=== PATIENT | female | born 1940 | race Caucasian/White ===

== ENCOUNTER → 2018-10-17 | Outpatient (CLI) | payer MEDICARE ==
[~2018-10-17] MED LIST: ACETAMINOPHEN-120 ML PO; ADULT LOW DOSE81 MG PO; ATACAND32 MG PO; CARAFATE 1 GM TA1 G1 PO; CARAFATE 11 GM/10 M1 PO; FLEXERIL PO; NEXIUM40 MG PO; NORCO 5-325 TA1 EACH PO; OXYIR5 MG PO; PHENERGAN 25 MG25 M1 PO; PREMARIN0.625 MG PO; PROTONIX40 M2 PO; REGLAN 5 MG TAB5 M1 PO; ULTRAM 50MG TAB50 MG PO; VENTOLIN17 GM INH; XANAX 0.25 MG0.25 MG; ZOFRAN4 MG PO; ZPAK PO
[2018-10-17 14:47] LABS: ABSOLUTE BASOPHILS 0.1 thou/uL (0.0-0.2); ABSOLUTE EOSINOPHILS 0.3 thou/uL (0.0-0.7); ABSOLUTE LYMPHOCYTES 1.4 thou/uL (0.8-5.3); ABSOLUTE MONOCYTES 0.4 thou/uL (0.0-1.2); BASOPHILS 0.8 %; EOSINOPHILS 3.4 %; HEMATOCRIT 30.7 % (37.0-47.0); HEMOGLOBIN 10.3 gm/dL (12.0-15.0); LYMPHOCYTES 17.4 %; MCH 32.4 pg (26.0-34.0); MCHC 33.5 g/dL (28.0-37.0); MCV 96.9 fL (80.0-100.0); MONOCYTES 4.4 %; MPV 8.6 fl. (7.2-11.1); NUCLEATED RBCS 0 /100WBC; PLATELET COUNT* 342 thou/uL (150-400); RBC 3.17 mil/uL (4.20-5.00); RDW-CV 14.9 % (10.5-14.5); WBC 8.2 thou/uL (4.0-11.0)
[2018-10-17 15:01] LABS: ALBUMIN 3.2 g/dL (3.4-5.0); CALCIUM 8.6 mg/dL (8.5-10.1); CREATININE 0.9 mg/dL (0.6-1.3); POTASSIUM 3.8 mmol/L (3.5-5.1); TOTAL BILIRUBIN 0.3 mg/dL (<0.1-1.0); TOTAL PROTEIN 7.4 g/dL (6.4-8.2)
[2018-10-17 16:17] LABS: ESR (SEDRATE) 55 mm/hr (0-30)
== END ==
LOC: M.LAB 14:23
PROVIDERS: Internal Medicine Gastroenterology
DX: K92.2 Gastrointestinal hemorrhage, unspecified (principal); Z85.038 Personal history of other malignant neoplasm of large intestine

== ENCOUNTER → 2019-06-24 | Outpatient (CLI) | payer MEDICARE ==
[2019-06-24 11:57] LABS: ABSOLUTE BASOPHILS 0.1 thou/uL (0.0-0.2); ABSOLUTE EOSINOPHILS 0.2 thou/uL (0.0-0.7); ABSOLUTE LYMPHOCYTES 1.4 thou/uL (0.8-5.3); ABSOLUTE MONOCYTES 0.4 thou/uL (0.0-1.2); ABSOLUTE NEUTROPHILS 4.4 thou/uL (1.6-8.1); BASOPHILS 1.9 %; EOSINOPHILS 3.1 %; HEMATOCRIT 36.1 % (37.0-47.0); LYMPHOCYTES 20.9 %; MCH 31.1 pg (26.0-34.0); MCHC 33.2 g/dL (28.0-37.0); MCV 93.5 fL (80.0-100.0); MONOCYTES 5.9 %; MPV 9.2 fl. (7.2-11.1); NUCLEATED RBCS 0 /100WBC; PLATELET COUNT* 286 thou/uL (150-400); POLYS 68.2 %; RBC 3.86 mil/uL (4.20-5.00); RDW-CV 14.2 % (10.5-14.5); WBC 6.5 thou/uL (4.0-11.0)
[2019-06-24 12:15] LABS: ALBUMIN 3.6 g/dL (3.4-5.0); CALCIUM 9.2 mg/dL (8.5-10.1); TOTAL BILIRUBIN 0.6 mg/dL (<0.1-1.0)
[2019-06-24 13:01] LABS: ESR (SEDRATE) 49 mm/hr (0-30)
== END ==
LOC: M.LAB 11:30
PROVIDERS: Internal Medicine Gastroenterology
DX: D50.9 Iron deficiency anemia, unspecified (principal)

== ENCOUNTER 2019-10-02 10:12 | Inpatient (IN) | payer MEDICARE ==
[~2019-10-02] VITALS: Ht 160 cm; Wt 85.4 kg
--- NOTE | ~2019-10-02 | CON ---
[facility] [address] [place] [address] CONSULTATION Name: FRANCOIS PINA Room: [place] [address] ADM IN M.R.#: [id number] Admission: 10/02/19 Attend Phys: Hugh Gonzalez Discharge: Date of : 38 Report #: [id number] THIS REPORT FOR: //name// CC: Richie Tay Gentry Jasvir [facility] DICTATED BY: Radha Kingsley [facility] DATE OF SERVICE: 10/03/2019 Please note at the time of this dictation, the patient was seen and physically examined by myself. ALLERGIES: HYDROMORPHONE. MEDICATIONS: From home include Xanax, Nexium 40 mg b.i.d., Premarin, Atacand and aspirin. HISTORY OF PRESENT ILLNESS: This is a pleasant 79-year-old female who is well known to our practice that last evening or yesterday she began having some back discomfort that became pretty significant and between her shoulder blades and then radiated into the front of her chest. She states it was not like her acid reflux that she has ever experienced before and it just progressively got worse. She rated her pain as 6/10 and she did have some vomiting when this all started, broke out in a sweat. She states her vomitus was no bright red blood or any coffee-ground emesis. She said her pain is better now and she is getting scheduled for a stress test later today by Cardiology. The patient did undergo an EGD in 06/[address] Stewart that showed long-segment Cannon's esophagus and hiatal hernia. Her Nexium was increased from 40 mg daily to b.i.d. at that time. Last colonoscopy was in 2018, showed some diverticulosis, hemorrhoids and a functional ileocolonic anastomosis. She denies any difficulty swallowing, any nausea or vomiting at this time or any issues with acid reflux. She is not having any abdominal pain and no issues with her bowels at the present time. PAST MEDICAL HISTORY: Hypertension, GERD, trigeminal neuralgia. PAST SURGICAL HISTORY: Hysterectomy. She had a trigeminal neuralgia surgery, has a plate in her left wrist and two fundoplication surgeries done in the past. FAMILY HISTORY: Noncontributory. SOCIAL HISTORY: Former smoker. Denies any alcohol or illegal drug use. REVIEW OF SYSTEMS: Twelve-point review of systems is essentially negative except what is [place] [address] CONSULTATION Name: FRANCOIS PINA Room: [address]#: [id number] Admission: 10/02/19 Attend Phys: Hugh Gonzalez Discharge: Date of : 38 Report #: [id number] PHYSICAL EXAMINATION: VITAL SIGNS: Temperature 36.5, pulse 108, respirations 18, blood pressure 157/86. HEART: Regular rate and rhythm. LUNGS: Clear. ABDOMEN: Soft, positive bowel sounds in all 4 quadrants with no masses or tenderness noted. LABORATORY DATA: Hemoglobin 12.6, white count 9.1, platelets 287. GFR is 53. PT 9.9, INR is 1. Troponins are negative. Stress test pending. IMPRESSION: 1. Vomiting, resolved. 2. Chest and back pain. 3. History of long-segment Cannon's esophagus. Last EGD in 06/2019. PLAN: 1. No endoscopic evaluation warranted at this time given that she recently had one. 2. Await stress test and Cardiology input. Thank you for allowing us to participate in this patient's care. Please do not hesitate to call with any questions in regard to this consult. By: [id number] Funez MD /nt
[2019-10-02 10:21] VITALS: BP 180/83
[2019-10-02 10:45] LABS: ABSOLUTE BASOPHILS 0.2 thou/uL (0.0-0.2); ABSOLUTE EOSINOPHILS 0.2 thou/uL (0.0-0.7); ABSOLUTE LYMPHOCYTES 1.9 thou/uL (0.8-5.3); ABSOLUTE MONOCYTES 0.5 thou/uL (0.0-1.2); ABSOLUTE NEUTROPHILS 6.4 thou/uL (1.6-8.1); BASOPHILS 1.7 %; EOSINOPHILS 1.8 %; HEMOGLOBIN 12.6 gm/dL (12.0-15.0); MCH 31.1 pg (26.0-34.0); MCHC 33.9 g/dL (28.0-37.0); MCV 91.5 fL (80.0-100.0); MONOCYTES 5.4 %; MPV 8.9 fl. (7.2-11.1); NUCLEATED RBCS 0 /100WBC; PLATELET COUNT* 287 thou/uL (150-400); POLYS 70.1 %; RBC 4.04 mil/uL (4.20-5.00); WBC 9.1 thou/uL (4.0-11.0)
[2019-10-02 10:57] LABS: CALCIUM 8.5 mg/dL (8.5-10.1); POTASSIUM 3.3 mmol/L (3.5-5.1)
[2019-10-02 10:59] LABS: APTT 25.6 Seconds (25.0-31.3); PROTIME 9.9 Seconds (9.20-11.50)
[2019-10-02 11:09] LABS: ALBUMIN 3.3 g/dL (3.4-5.0); CK-MB MASS 1.7 ng/mL (<0.5-3.6); MAGNESIUM 1.9 mg/dL (1.8-2.4); TOTAL BILIRUBIN 0.4 mg/dL (<0.1-1.0); TOTAL PROTEIN 7.8 g/dL (6.4-8.2)
--- NOTE | 2019-10-02 17:08 | EKG ---
[place] [address] ELECTROCARDIOGRAM REPORT Name: FRANCOIS PINA Room: [place] [address] ADM IN .R.#: [id number] Admission: 10/02/19 Attend Phys: Hugh Gonzalez Discharge: Date of : 38 Report #: [id number] THIS REPORT FOR: //name// [facility] ED Test Date: 2019-10-02 Test Time: 10:19:20 Pat Name: FRANCOIS PINA Department: Room: [facility] Gender: F Dining Room Attendant: : 1940 Requested By: iJgar Daniel Order Number: [id number] MD: Rodolfo Clarke Measurements Intervals [place] Rate: 93 P: 80 MD: 164 QRS: -8 QRSD: 89 T: 50 QT: 405 QTc: 504 Interpretive Statements Sinus rhythm Borderline ST depression, lateral leads Prolonged QT interval Compared to ECG 09/13/2012 15:05:31 ST (T wave) deviation now present Prolonged QT interval now present Electronically Signed On 10-02-2019 17:07:32 FAMILY INTERVENTION SPECIALIST by Rodolfo Clarke [email or web address] <ELECTRONICALLY SIGNED> By: Rodolfo Clarke MD, FAC 10/02/19 1707 1019 1019 Rodolfo Clarke MD, [facility] /EPI
[2019-10-02 18:14] VITALS: BP 165/60
[2019-10-02 18:20] LABS: CHOLESTEROL 223 mg/dL (<200); HDL CHOLESTEROL 56 mg/dL (>40); LDL CHOLESTEROL 148 mg/dL (<100); TRIGLYCERIDE 97 mg/dL (<150); VLDL 19 mg/dL (<40)
[2019-10-02 18:21] LABS: SERUM ASSESSMENT Clear
[2019-10-02 20:30] VITALS: BP 180/72
[2019-10-02] MEDS ORDERED: COZAAR 25 MG TA25 M1 PO (21:19)
[2019-10-02] MEDS ORDERED: LORAZEPAM 0.50.5 MG PO (21:20)
[2019-10-02] MEDS ORDERED: HYDROXYZINE HCL25 M2 PO (21:23)
[2019-10-02] MEDS ORDERED: SERTRALINE HCL50 MG PO (21:24)
[2019-10-02] MEDS ORDERED: PHENTERMINE H37.5 MG PO (21:24)
[2019-10-03] VITALS (8 sets, daily range): BP systolic 117–178; BP diastolic 65–88
--- NOTE | 2019-10-03 13:02 | EKG ---
[place] [address] ELECTROCARDIOGRAM REPORT Name: FRANCOIS PINA Room: [place] [address] ADM IN M.R.#: [id number] Admission: 10/02/19 Attend Phys: Hugh Gonzalez Discharge: Date of : 38 Report #: [id number] THIS REPORT FOR: //name// [facility] Test Date: 2019-10-03 Test Time: 02:15:40 Pat Name: FRANCOIS PINA Department: Room: [place] [address] Gender: F Vice President Of Development: : 1940 Requested By: Richie Jang Order Number: [id number] MD: Rodolfo Clarke Measurements Intervals [place] Rate: 100 P: 104 SC: 176 QRS: 1 QRSD: 96 T: 29 QT: 399 QTc: 515 Interpretive Statements Sinus tachycardia Consider anterior infarct Minimal ST depression, lateral leads Prolonged QT interval Compared to ECG 10/02/2019 10:19:20 Myocardial infarct finding now present Sinus rate has increased ST (T wave) deviation still present Electronically Signed On 10-03-2019 13:01:27 CUTTER MACHINE TENDER by Rodolfo Clarke [email or web address] <ELECTRONICALLY SIGNED> By: Rodolfo Clarke MD, [facility] 10/03/19 1301 Rodolfo Clarke MD, [facility] /EPI
--- NOTE | 2019-10-03 18:17 | CARDNUC ---
[place] [address] CARDIAC NUCLEAR IMAGING REPORT Name: FRANCOIS PINA Room: [place] [address] ADM IN .R.#: [id number] Admission: 10/02/19 Attend Phys: Richie Jang Discharge: Date of : 38 Date of Service: 10/03/19 1816 Report #: [id number] THIS REPORT FOR: //name// APPROVED REPORT Imaging Protocol: Rest Tc-99m/Stress Tc-99m 1 day Study performed: 10/02/2019 16:54:00 Indication: epigastric pain Patient Location: In-Patient Stress Tech: Lauren Reaves Stress Nurse: Shikha Hair RN NM Tech:NOHEMI Mandel Ht: 5 ft 3 in Wt: 165 lbs BSA: 1.78 m2 BMI: 29.22 Medical History Medical History: HTN Medications: amlodipine Allergies: hydromorphone Cardiac Risk Factors: age, hypertension, former smoker Previous Cardiac Procedures: none Exercise History: Sedentary Resting Data Rest SPECT myocardial perfusion imaging was performed in supine position 30 minutes following the intravenous injection of 11.9 mCi of Tc-99m Sestamibi. Time of rest injection: 1125 Date: 10/03/2019 The images were gated to evaluate regional wall motion and calculate left ventricular ejection fraction. Administration Route: IV Pharmacologic Stress Pharmacologic stress test was performed by injecting Regadenoson 0.4 mg IV push over 10-15 seconds immediately followed by the intravenous injection of 35.5 mCi of Tc-99m Sestamibi. Time of stress injection: 1325 Date: 10/03/2019 Administration Route: IV Gated Stress SPECT was performed 40 minutes after stress injection. The images were gated to evaluate regional wall motion and calculate left ventricular ejection fraction. Stress only was performed [place] [address] CARDIAC NUCLEAR IMAGING REPORT Name: FRANCOIS PINA Room: [address] IN [facility]#: [id number] Admission: 10/02/19 Attend Phys: Richie Jang Discharge: Date of : 38 Date of Service: 10/03/19 1816 Report #: [id number] Stress Test Details Stress Test: Pharmacologic stress testing performed using 0.4 mg of regadenoson per 5 mL given IV over 10 seconds. Reason for pharmacologic stress test: physical limitation. HR Max Heart Rate (APMHR): 140 bpm Resting HR: 90 bpm Target HR (85% APMHR): 119 bpm Max HR Achieved: 119 bpm % of APMHR: 85 Recovery HR: 109 bpm BP Resting BP: 178/90 mmHg Max BP: 126/71 mmHg Recovery BP: 159/81 mmHg ECG Resting ECG: Sinus Rhythm, nonspecific ST-T abnormalities Stress ECG: Sinus Rhythm, nonspecific ST-T abnormalities ST Change: None Arrhythmia: None Recovery ECG: Sinus Rhythm, nonspecific ST-T abnormalities Recovery ST Change: None Recovery Arrhythmia: None Clinical Reason for Termination: Completed protocol Exercise duration: 0 min sec Exercise capacity: 1 METs The patient tolerated Lexiscan infusion without significant cardiac symptoms. Nurse Comments pt unable to walk on treadmill dut to generalized weakness Stress ECG Conclusion Baseline 12-lead EKG show sinus rhythm with nonspecific ST segment depression. EKGs obtained during and post Lexiscan infusion show sinus rhythm with nonspecific ST segment depression. There were no stress-induced arrhythmias. Study Quality Study: Good Artifact: [place] [address] CARDIAC NUCLEAR IMAGING REPORT Name: FRANCOIS PINA Room: [address] IN [facility].#: [id number] Admission: 10/02/19 Attend Phys: Richie Jang Discharge: Date of : 38 Date of Service: 10/03/19 1816 Report #: [id number] Study Data At rest, the left ventricular ejection fraction was 62%.. Post stress, the left ventricular ejection was 62%.. TID = 0.97. Perfusion Perfusion images show mild photopenia of the anterior wall that is more pronounced on resting and stress images. Wall motion in this region appears normal suggesting breast attenuation artifact. There are no significant reversible defects identified. Wall Motion Normal left ventricular wall motion. Nuclear Conclusion ECG Findings: non-diagnostic Clinical Findings: negative for ischemia Nuclear Findings: negative for ischemia Exercise Capacity: not assessed Left Ventricular Function: normal Risk Study: low Perfusion images show no defect to suggest stress-induced ischemia. Global LV systolic function is normal on gated studies. This is a low risk study. <Conclusion> Baseline 12-lead EKG show sinus rhythm with nonspecific ST segment depression. EKGs obtained during and post Lexiscan infusion show sinus rhythm with nonspecific ST segment depression. There were no stress-induced arrhythmias. <ELECTRONICALLY SIGNED> By: Mike Renee MD, FACC 10/03/191815 15 15 Mike Renee MD, FACC /INF
[2019-10-04 00:12] VITALS: BP 140/60
[2019-10-04 04:20] VITALS: BP 164/78
[2019-10-04 07:40] VITALS: BP 142/64
[2019-10-04 11:23] VITALS: BP 98/48
[2019-10-04] MEDS ORDERED: LOPRESSOR25 PO (11:37)
[2019-10-04] MEDS ORDERED: NITROSTAT0.4 M1 SUBLING (11:37)
== END 2019-10-04 14:25 | disposition home or self-care (01) | DRG 392 ==
LOC: M.ERS 10:12 → M.TBA-ER 13:57 → M.2W 13:57
PROVIDERS: Emergency Medicine; Registered Nurse; ADMIT Internal Medicine
DX: K21.0 Gastro-esophageal reflux disease with esophagitis (principal); K22.70 Barrett's esophagus without dysplasia; I10 Essential (primary) hypertension; M54.9 Dorsalgia, unspecified; E87.6 Hypokalemia; I20.8 Other forms of angina pectoris; E66.9 Obesity, unspecified; F41.1 Generalized anxiety disorder; Z90.710 Acquired absence of both cervix and uterus; Z79.899 Other long term (current) drug therapy; Z68.33 Body mass index [BMI] 33.0-33.9, adult; Z79.82 Long term (current) use of aspirin; Z88.5 Allergy status to narcotic agent; Z82.49 Family history of ischemic heart disease and other diseases of the circulatory system; Z87.891 Personal history of nicotine dependence

== ENCOUNTER 2019-10-07 22:36 | Emergency (ER) | payer MEDICARE ==
[~2019-10-07] VITALS: Ht 160 cm; Wt 74.8 kg
[~2019-10-07 22:36] MED LIST changes: +COZAAR 25 MG TA25 M1 PO; +HYDROXYZINE HCL25 M2 PO; +LOPRESSOR25 PO; +LORAZEPAM 0.50.5 MG PO; +NITROSTAT0.4 M1 SUBLING; +PHENTERMINE H37.5 MG PO; +SERTRALINE HCL50 MG PO
[2019-10-07 23:00] LABS: ABSOLUTE BASOPHILS 0.1 thou/uL (0.0-0.2); ABSOLUTE EOSINOPHILS 0.3 thou/uL (0.0-0.7); ABSOLUTE LYMPHOCYTES 2.5 thou/uL (0.8-5.3); ABSOLUTE MONOCYTES 0.6 thou/uL (0.0-1.2); ABSOLUTE NEUTROPHILS 8.6 thou/uL (1.6-8.1); BASOPHILS 1.2 %; EOSINOPHILS 2.8 %; HEMATOCRIT 37.7 % (37.0-47.0); HEMOGLOBIN 12.9 gm/dL (12.0-15.0); LYMPHOCYTES 20.5 %; MCH 31.4 pg (26.0-34.0); MCHC 34.1 g/dL (28.0-37.0); MCV 92.1 fL (80.0-100.0); MONOCYTES 4.6 %; MPV 9.1 fl. (7.2-11.1); NUCLEATED RBCS 0 /100WBC; PLATELET COUNT* 339 thou/uL (150-400); POLYS 70.9 %; RDW-CV 14.3 % (10.5-14.5); WBC 12.1 thou/uL (4.0-11.0)
[2019-10-07 23:12] LABS: PROTIME 9.9 Seconds (9.20-11.50)
[2019-10-07 23:21] LABS: ALBUMIN 3.5 g/dL (3.4-5.0); CALCIUM 8.6 mg/dL (8.5-10.1); TOTAL BILIRUBIN 0.3 mg/dL (<0.1-1.0); TOTAL PROTEIN 8.3 g/dL (6.4-8.2)
[2019-10-07 23:31] LABS: POTASSIUM 3.7 mmol/L (3.5-5.1)
[2019-10-08 02:30] VITALS: BP 174/69
--- NOTE | 2019-10-08 10:25 | EKG ---
[place] [address] ELECTROCARDIOGRAM REPORT Name: FRANCOIS PINA Room: [facility]#: [id number] Admission: 10/07/19 Attend Phys: Discharge: 10/08/19 Date of : 38 Report #: [id number] THIS REPORT FOR: //name// [facility] ED Test Date: 2019-10-07 Test Time: 22:45:01 Pat Name: FRANCOIS PINA Department: Room: Gender: F Mold Checker: : 1940 Requested By: Caroline Xiao Order Number: [id number] MD: Gray Oakes Measurements Intervals [place] Rate: 100 P: 49 FL: 164 QRS: -15 QRSD: 95 T: 62 QT: 364 QTc: 470 Interpretive Statements Sinus tachycardia Borderline left axis deviation Consider anterior infarct Compared to ECG 10/03/2019 02:15:40 Prolonged QT interval no longer present Myocardial infarct finding still present Electronically Signed On 10-08-2019 10:24:36 MICROBIOLOGY TECHNICIAN by Gray Oakes [email or web address] <ELECTRONICALLY SIGNED> By: Gray Oakes MD, [facility] 10/08/19 1024 2245 2245 Gray Oakes MD, [facility] /EPI
== END 2019-10-08 02:30 | disposition home or self-care (01) ==
LOC: M.ERS 22:36
PROVIDERS: Emergency Medicine
DX: R07.89 Other chest pain (principal); R11.2 Nausea with vomiting, unspecified; K21.9 Gastro-esophageal reflux disease without esophagitis; I10 Essential (primary) hypertension; Z90.710 Acquired absence of both cervix and uterus; Z88.5 Allergy status to narcotic agent

== ENCOUNTER → 2021-04-13 | Outpatient (CLI) | payer MEDICARE ==
--- NOTE | 2021-04-13 13:26 | 2DMMODE ---
[place] [address] 2 D/M-MODE ECHOCARDIOGRAM Name: FRANCOIS PINA Room: [facility]#: [id number] Admission: 04/13/21 Attend Phys: Gray Oakes MD Discharge: Date of : 38 Date of Service: 04/13/21 1325 Report #: [id number] THIS REPORT FOR: cc: Jasvir Lainez Robin L. FNP Holkins, John M. MD [facility] ~ APPROVED REPORT Study performed: 04/13/2021 10:53:12 EXAM: Comprehensive 2D, Doppler, and color-flow Echocardiogram Patient Location: Out-Patient BSA: 1.86 HR: 84 bpm BP: 150/90 mmHg Other Information Study Quality: Good Indications Chest Pain 2D Dimensions IVSd: 11.38 (7-11mm) LVOT Diam: 19.56 (18-24mm) LVDd: 39.37 mm PWd: 11.03 (7-11mm) Ascending Ao: 30.50 (22-36mm) LVDs: 24.13 (25-40mm) Aortic Root: 27.13 mm Volumes Left Atrial Volume (Systole) LA ESV Index: 16.20 mL/m2 Aortic Valve AoV Peak Montrell.: 1.32 m/s AO Peak Gr.: 6.97 mmHg LVOT Max P.47 mmHg AO Mean Gr.: 3.00 mmHg LVOT Mean P.73 mmHg LVOT Max V: 0.93 m/s AO V2 VTI: 21.62 cm LVOT Mean V: 0.60 m/s DAVIS (VTI): 2.73 cm2 LVOT V1 VTI: 19.67 cm Mitral Valve E/A Ratio: 0.57 [place] [address] 2 D/M-MODE ECHOCARDIOGRAM Name: FRANCOIS PINA Room: [facility]#: [id number] Admission: 04/13/21 Attend Phys: Gray Oakes MD Discharge: Date of : 38 Date of Service: 04/13/21 1325 Report #: [id number] MV Decel. Time: 310.79 ms MV E Max Montrell.: 0.51 m/s MV PHT: 90.13 ms MVA (PHT): 2.44 cm2 TDI E/Lateral E': 7.29 E/Medial E': 7.29 Medial E' Montrell.: 0.07 m/s Lateral E' Montrell.: 0.07 m/s Pulmonary Valve PV Peak Montrell.: 0.90 m/s PV Peak Gr.: 3.21 mmHg Left Ventricle The left ventricle is normal size. There is normal LV segmental wall motion. There is normal left ventricular wall thickness. Left ventricular systolic function is normal. The left ventricular ejection fraction is within the normal range. LVEF is 55-60%. Grade I - abnormal relaxation pattern. Right Ventricle The right ventricle is normal size. The right ventricular systolic function is normal. Atria The left atrium size is normal. The right atrium size is normal. Aortic Valve The aortic valve is normal in structure. No aortic regurgitation is present. There is no aortic valvular stenosis. Mitral Valve Mild mitral annular calcification. Trace mitral regurgitation. No evidence of mitral valve stenosis. Tricuspid Valve The tricuspid valve is normal in structure. There is no tricuspid valve regurgitation noted. Pulmonic Valve The pulmonary valve is normal in structure. There is no pulmonic valvular regurgitation. Great Vessels The aortic root is normal in size. IVC [place] [address] 2 D/M-MODE ECHOCARDIOGRAM Name: FRANCOIS PINA Room: [facility]#: [id number] Admission: 04/13/21 Attend Phys: Gray Oakes MD Discharge: Date of : 38 Date of Service: 04/13/21 1325 Report #: [id number] collapses >50% with inspiration. Pericardium There is no pericardial effusion. <Conclusion> The left ventricle is normal size. There is normal left ventricular wall thickness. Left ventricular systolic function is normal. The left ventricular ejection fraction is within the normal range. LVEF is 55-60%. Grade I - abnormal relaxation pattern. The right ventricle is normal size. The left atrium size is normal. The aortic valve is normal in structure. Mild mitral annular calcification. Trace mitral regurgitation. No evidence of mitral valve stenosis. The tricuspid valve is normal in structure. IVC is normal in size and collapses >50% with inspiration. There is no pericardial effusion. There is normal LV segmental wall motion. <ELECTRONICALLY SIGNED> By: Rodolfo Clarke MD, FACC 04/13/21 1325 1325 1325 Rodolfo Clarke MD, FACC /INF
== END ==
LOC: M.CRD 11:00
PROVIDERS: ATTEND Internal Medicine Cardiovascular Disease
DX: I05.9 Rheumatic mitral valve disease, unspecified (principal); R94.31 Abnormal electrocardiogram [ECG] [EKG]

== ENCOUNTER 2021-05-03 12:40 | Emergency (ER) | payer MEDICARE ==
[~2021-05-03] VITALS: Ht 157.5 cm; Wt 87.8 kg
[2021-05-03 13:10] LABS: ABSOLUTE BASOPHILS 0.1 thou/uL (0.0-0.2); ABSOLUTE EOSINOPHILS 0.1 thou/uL (0.0-0.7); ABSOLUTE LYMPHOCYTES 1.4 thou/uL (0.8-5.3); ABSOLUTE MONOCYTES 0.5 thou/uL (0.0-1.2); ABSOLUTE NEUTROPHILS 6.4 thou/uL (1.6-8.1); BASOPHILS 1.4 %; EOSINOPHILS 1.4 %; HEMATOCRIT 28.9 % (37.0-47.0); HEMOGLOBIN 9.5 gm/dL (12.0-15.0); LYMPHOCYTES 15.9 %; MCH 28.4 pg (26.0-34.0); MONOCYTES 5.6 %; MPV 8.5 fl. (7.2-11.1); NUCLEATED RBCS 0 /100WBC; PLATELET COUNT* 280 thou/uL (150-400); POLYS 75.7 %; RBC 3.36 mil/uL (4.20-5.00); RDW-CV 16.8 % (10.5-14.5); WBC 8.5 thou/uL (4.0-11.0)
[2021-05-03 13:21] LABS: CREATININE 2.4 mg/dL (0.6-1.3); POTASSIUM 4.1 mmol/L (3.5-5.1)
[2021-05-03 13:25] LABS: ALBUMIN 3.5 g/dL (3.4-5.0); TOTAL BILIRUBIN 0.8 mg/dL (<0.1-1.0); TOTAL PROTEIN 7.5 g/dL (6.4-8.2)
[2021-05-03 14:20] VITALS: BP 174/74
--- NOTE | 2021-05-04 10:06 | EKG ---
[place] [address] ELECTROCARDIOGRAM REPORT Name: FRANCOIS PINA Room: [facility]#: [id number] Admission: 05/03/21 Attend Phys: Discharge: 05/03/21 Date of : 38 Date of Service: 05/03/21 1241 Report #: [id number] THIS REPORT FOR: //name// [facility] ED Test Date: 2021-05-03 Test Time: 12:41:37 Pat Name: FRANCOIS CRUZNghia Department: Room: Gender: F Train Control Electronic Technician: LEVY : 1940 Requested By: Jerald Albert Order Number: [id number] MD: Gray Oakes Measurements Intervals [place] Rate: 67 P: 78 MA: 173 QRS: 0 QRSD: 94 T: 3 QT: 513 QTc: 542 Interpretive Statements Sinus rhythm poor r wave progression Prolonged QT interval Compared to ECG 10/07/2019 22:45:01 Prolonged QT interval now present Sinus tachycardia no longer present Electronically Signed On 05-04-2021 10:06:11 CDT by Gray Oakes [email or web address] <ELECTRONICALLY SIGNED> By: Gray Oakes MD, FAC 05/04/21 1006 1241 1241 Gray Oakes MD, [facility] /EPI
== END 2021-05-03 14:21 | disposition home or self-care (01) ==
LOC: M.ERS 12:40
PROVIDERS: Family Medicine
DX: R53.1 Weakness (principal); I10 Essential (primary) hypertension; K21.9 Gastro-esophageal reflux disease without esophagitis; Z88.5 Allergy status to narcotic agent; Z79.899 Other long term (current) drug therapy; W18.39XA Other fall on same level, initial encounter; Y93.89 Activity, other specified; Y92.89 Other specified places as the place of occurrence of the external cause; Y99.8 Other external cause status

== ENCOUNTER → 2021-09-01 | Outpatient (CLI) | payer MEDICARE | LOC: M.LAB 06:28 | PROVIDERS: ATTEND Internal Medicine Gastroenterology | DX: Z01.812 Encounter for preprocedural laboratory examination (principal); Z20.822 Contact with and (suspected) exposure to COVID-19 ==

== ENCOUNTER → 2021-10-05 | Outpatient (CLI) | payer MEDICARE | LOC: M.RAD 14:13 | PROVIDERS: ATTEND Nurse Practitioner Family | DX: M51.36 Other intervertebral disc degeneration, lumbar region (principal); M25.78 Osteophyte, vertebrae; M43.16 Spondylolisthesis, lumbar region ==